=== PATIENT | male | born 2000 | race Caucasian/White ===

== ENCOUNTER 2019-08-16 17:26 | Emergency (ER) | payer BC ==
--- NOTE | 2019-08-16 18:02 | EDM.PDOC ---
ED HPI GENERAL MEDICAL PROBLEM - General Chief Complaint: General Stated Complaint: DYSPNEA Time Seen by Provider: 08/16/19 17:55 Source of Information: Reports: Patient, RN History Limitations: Reports: No Limitations - History of Present Illness INITIAL COMMENTS - FREE TEXT/NARRATIVE: 19 yo male presents with upper GI and chest pain. States he was at work today and the pain started about 5pm. States he was standing around when the pain started. He is holding his chest BP 119/77. EKG completed and sinus rhythm. States about 1 week ago he had a gallbladder attack, but it felt different than this. States some shortness of breath with the pain and some nausea with this. States he didn't take anything for the pain. Health hx of grandfather with sudden at a young age and dad with NH in his 40's. Will work up for possible cardiac and possible choley or pancreatitis or diverticulitis. Chest Pain Score (Numeric/FACES): 10 - Related Data Allergies Allergy/AdvReac Type Severity Reaction Status Date / Time No Known Allergies Allergy Verified 08/16/19 17:29 Home Meds: Home Meds NK [No Known Home Meds] 08/16/19 [History] ED ROS GENERAL - Review of Systems Review Of Systems: See Below Constitutional: Denies: Fever, Chills HEENT: Reports: No Symptoms. Denies: Sinus Problem, Throat Pain Respiratory: Reports: Shortness of Breath. Denies: Pleuritic Chest Pain Cardiovascular: Reports: Chest Pain. Denies: Blood Pressure Problem, Edema, Syncope GI/Abdominal: Reports: Abdominal Pain, Decreased Appetite, Nausea. Denies: Constipation, Diarrhea : Reports: No Symptoms. Denies: Dysuria, Flank Pain Musculoskeletal: Reports: No Symptoms Skin: Reports: No Symptoms Neurological: Reports: No Symptoms Psychiatric: Reports: No Symptoms Hematologic/Lymphatic: Reports: No Symptoms Immunologic: Reports: No Symptoms ED EXAM, GENERAL - Physical Exam Exam: See Below Exam Limited By: No Limitations General Appearance: Alert, No Apparent Distress Ears: Normal External Exam, Normal Canal, Hearing Grossly Normal Nose: Normal Inspection, Normal Mucosa Throat/Mouth: Normal Inspection, Normal Lips, Normal Teeth, Normal Voice, No Airway Compromise Head: Atraumatic, Normocephalic Neck: Normal Inspection, Supple Respiratory/Chest: No Respiratory Distress, Lungs Clear, Normal Breath Sounds Cardiovascular: Normal Peripheral Pulses, Regular Rate, Rhythm, No Edema GI/Abdominal: Normal Bowel Sounds, Soft, Non-Tender (Male) Exam: No Hernia Back Exam: Normal Inspection, Full Range of Motion Extremities: Normal Inspection, Normal Range of Motion, Non-Tender Neurological: Alert, Oriented, Normal Cognition Psychiatric: Normal Affect, Normal Mood Skin Exam: Warm, Dry, Intact Course - Vital Signs Last Recorded V/S: Last Vital Signs Temp 97.8 F 08/16/19 17:32 Pulse 75 08/16/19 19:10 Resp BP 115/63 08/16/19 19:10 Pulse Ox 100 08/16/19 17:32 - Orders/Labs/Meds Orders: Active Orders 24 hr Category Date Time Status Abdomen Pelvis wo Cont [CT] Stat Exams 08/16/19 18:35 Taken Chest 1V Frontal [CR] Stat Exams 08/16/19 18:04 Taken Saline Lock Insert [OM.PC] Routine Oth 08/16/19 18:04 Ordered Labs: Laboratory Tests 08/16/19 08/16/19 Range/Units 18:05 18:05 WBC 7.8 (4.0-11.0) K/uL RBC 4.75 (4.50-6.50) M/uL Hgb 15.1 (13.0-18.0) g/dL Hct 43.4 (40.0-54.0) % MCV 91 (76-96) fL MCH 31.8 (27.0-32.0) pg MCHC 34.8 (31.0-35.0) g/dL RDW 12.9 (11.0-16.0) % Plt Count 230 (150-400) K/uL MPV 9.9 (6.0-10.0) fL Neut % (Auto) 62.0 (45.0-70.0) % Lymph % (Auto) 25.0 (20.0-40.0) % Centre % (Auto) 8.8 (3.0-10.0) % Eos % (Auto) 3.4 (1.0-5.0) % Baso % (Auto) 0.8 H (0.0-0.5) % Neut # (Auto) 4.81 (2.00-7.50) K/uL Lymph # (Auto) 1.94 (1.50-4.00) K/uL Centre # (Auto) 0.68 (0.20-0.80) K/uL Eos # (Auto) 0.26 (0.04-0.40) K/uL Baso # (Auto) 0.06 (0.02-0.10) K/uL Sodium 139 (136-145) mmol/L Potassium 3.4 L (3.5-5.1) mmol/L Chloride 102 (98-107) mmol/L Carbon Dioxide 24.6 (21.0-32.0) mmol/L Anion Gap 15.8 H (5.0-15.0) mmol/L BUN 17 (8-26) mg/dL Creatinine 0.96 (0.70-1.30) mg/dL Est Cr Clr Drug Dosing 137.56 mL/min Estimated GFR (MDRD) > 60 (>60) MLS/MIN BUN/Creatinine Ratio 17.7 (6-25) Glucose 98 (74-100) mg/dL Calcium 8.8 (8.5-10.1) mg/dL Total Bilirubin 0.4 (0.0-1.0) mg/dL AST 25 (15-37) U/L ALT 38 (12-78) U/L Alkaline Phosphatase 92 (46-116) U/L Troponin I < 0.017 (0.000-0.060) ng/mL Total Protein 7.5 (6.4-8.2) g/dL Albumin 4.1 (3.4-5.0) g/dL Globulin 3.4 (2.2-4.2) g/dL Albumin/Globulin Ratio 1.2 (0.8-2.0) Lipase 125 (73-393) U/L TSH, Ultra Sensitive 1.074 (0.358-3.740) uIU/mL Meds: Medications Discontinued Medications Generic Name Dose Route Start Last Admin Trade Name Freq PRN Reason Stop Dose Admin Aspirin 324 mg 08/16/19 18:03 08/16/19 18:05 Aspirin PO 08/16/19 18:04 324 mg ONETIME ONE Administration Sodium Chloride 1,000 mls @ 125 mls/hr 08/16/19 18:15 08/16/19 19:50 Normal Saline IV 0 mls/hr ASDIRECTED TERRY Infusion Sodium Chloride 1,000 mls @ 999 mls/hr 08/16/19 18:15 08/16/19 18:03 Normal Saline IV 999 mls/hr ASDIRECTED TERRY Administration Morphine Sulfate 2 mg 08/16/19 18:07 08/16/19 18:56 Morphine IVPUSH 2 mg Q1H PRN Administration Chest Pain Nitroglycerin 0.4 mg 08/16/19 18:03 08/16/19 18:12 Nitrostat SL 0.4 mg Q5M PRN Administration Chest Pain Sodium Chloride 10 ml 08/16/19 18:04 Saline Flush FLUSH ASDIRECTED PRN Keep Vein Open Departure - Departure Time of Disposition: 19:48 Disposition: Home, Self-Care 01 Condition: Good Clinical Impression: Atypical chest pain, Upper abdominal pain - Discharge Information *PRESCRIPTION DRUG MONITORING PROGRAM REVIEWED*: Not Applicable *COPY OF PRESCRIPTION DRUG MONITORING REPORT IN PATIENT QUINCY: Not Applicable Instructions: Nonspecific Chest Pain Forms: ED Department Discharge Sepsis Event Note - Evaluation Sepsis Screening Result: No Definite Risk - Focused Exam Date Exam was Performed: 08/17/19 Time Exam was Performed: 10:32 - My Orders Last 24 Hours: My Active Orders 08/16/19 18:04 Chest 1V Frontal [CR] Stat Saline Lock Insert [OM.PC] Routine 08/16/19 18:35 Abdomen Pelvis wo Cont [CT] Stat - Assessment/Plan Last 24 Hours: My Active Orders 08/16/19 18:04 Chest 1V Frontal [CR] Stat Saline Lock Insert [OM.PC] Routine 08/16/19 18:35 Abdomen Pelvis wo Cont [CT] Stat Plan: Pain of abdomen and chest of unknown etiology. Pain improved with nitro X 1, and MS 2mg IV X 2. Labs reviewed and noncontributory, EKG NSR and no ST changes. Chest x-ray with atelectasis of LLL. Pt does smoke and some vaping history. CT of abdomen and pelvis and no significant findings. Recommend soft diet as tolerated, adequate fluids of 4-6 bottles of water daily. Recommend use of Miralax or stool softeners as needed for regular BM. Reassured pt troponins are negative, no acute infectious process, and kidney function, liver function is normal and lipase is normal. May take Tylenol or Ibuprofen as needed for relief of pain. Return to ER if symptoms worsen.
[2019-08-16] MEDS ORDERED: Aspirin 81 MG Tab.Chew PO ONE (18:03)
[2019-08-16] MEDS ORDERED: Nitroglycerin 0.4 MG Tab.SL SL PRN (18:03)
[2019-08-16] MEDS ORDERED: Sodium Chloride 0.9% 10 ML Syringe FLUSH PRN (18:04)
[2019-08-16] MEDS ORDERED: Sodium Chloride 0.9% 1,000 ML IV SCH ×2 (18:15)
[2019-08-16] MEDS: Morphine 2 MG/ML Syringe IVPUSH PRN ×2 (18:17→18:56)
--- NOTE | 2019-08-20 08:45 | CR ---
Date of Service: 08/16/19 Clinical Data: chest pain AP CHEST: No priors. The patient is in an apical lordotic position. The heart size is normal. The lungs are clear. No pneumothorax. No pleural effusions. No evidence of acute intrathoracic disease. [id number] MTDD
--- NOTE | 2019-08-20 10:08 | CT ---
Date of Service: 08/16/19 Clinical Data: chest pain, upper GI pain UNENHANCED ABDOMEN AND PELVIC CT: Multislice acquisition through the abdomen and pelvis without IV or oral contrast was performed. No priors. There are mild atelectatic changes in the left lung base. The lung bases are otherwise clear. The unenhanced liver appears normal. The gallbladder appears normal. The spleen appears normal. The pancreas appears normal. The right and left adrenals appear normal. The right and left kidneys appear normal. No nephrocalcinosis or nephrolithiasis. No hydronephrosis or hydroureter. The bladder is fluid-filled. It appears normal. No evidence of appendicitis. There is a moderate amount of stool noted in the ascending and transverse colon. There are nonspecific lymph nodes noted medial to the cecum and within the mesentery. Mesenteric adenitis should be considered. No free air. No free fluid. No dilated loops of bowel. No aortic aneurysm. No other significant findings. [id number] [facility]
== END 2019-08-16 19:50 | disposition home or self-care (01) ==
LOC: LB.ED 17:26
DX: R10.10 Upper abdominal pain, unspecified (principal); R07.89 Other chest pain
CPT/HCPCS: 36415; 71045; 74176; 80053; 83690; 84443; 84484; 85025; 96361; 96374; 96376; 99285-25; A9270-GY; J2270; J7030